=== PATIENT | female | born 1990 | race African-American/Black ===

== ENCOUNTER 2017-02-01 07:10 | Emergency (ER) | payer BC ==
[~2017-02-01] VITALS: Ht 162.6 cm; Wt 54.0 kg
[~2017-02-01 07:10] MED LIST: OMEP20CA9 PO; ONDA4TAB35 PO
[2017-02-01 07:12] VITALS: Ht 162.6 cm; Wt 54.0 kg
[2017-02-01] MEDS ORDERED: LIDOCAINE/MYLANTA 40 ML BTL PO STA (07:39)
[2017-02-01] MEDS ORDERED: FAMOTIDINE 20 MG TAB PO STA (07:39)
--- NOTE | 2017-02-01 08:12 | RADRPT ---
PROCEDURE: XR Chest. CLINICAL INDICATION: chest pain TECHNIQUE: Single frontal view of the chest was obtained COMPARISON: None FINDINGS: The heart and mediastinum are within normal limits. The lungs are clear. There is no pleural effusion or pneumothorax. RPTAT: AA IMPRESSION: No acute disease. .Juan Brasher MD, Date Time Electronically viewed and signed by .Juan Brasher MD, on 02/01/2017 08:12 .S/
[2017-02-01 08:31] LABS: BASOPHILS % 0.2 % (0.0-2.0); EOSINOPHILS % 0.5 % (0.0-7.0); HEMATOCRIT 39.6 % (37.0-47.0); HEMOGLOBIN 13.3 g/dl (12.0-16.0); LYMPHOCYTES # 1.8 10^3/ul (0.8-2.9); LYMPHOCYTES % 31.8 % (15.0-51.0); MEAN CORPUSCULAR HEMOGLOBIN 30.3 pg (29.0-33.0); MEAN CORPUSCULAR HGB CONC 33.6 g/dl (32.0-37.0); MEAN CORPUSCULAR VOLUME 90.2 fl (82.0-101.0); MEAN PLATELET VOLUME 10.5 fl (7.4-10.4); MONOCYTE # 0.3 10^3/ul (0.3-0.9); NEUTROPHIL # 3.5 10^3/ul (1.6-7.5); NEUTROPHILS % 61.3 % (39.0-77.0); PLATELET COUNT 219 10^3/UL (140-415); RED BLOOD COUNT 4.39 10^6/ul (4.20-5.40); RED CELL DISTRIBUTION WIDTH 13.7 % (11.5-14.5); WHITE BLOOD COUNT 5.7 10^3/ul (4.8-10.8)
[2017-02-01 08:45] LABS: INR 0.98
[2017-02-01 08:46] LABS: PARTIAL THROMBOPLASTIN TIME 35.4 Sec (25.0-35.0)
[2017-02-01 08:48] LABS: ANION GAP 20 (8-16); BLOOD UREA NITROGEN 7 mg/dl (7-20); CALCIUM 9.1 mg/dl (8.4-10.2); CARBON DIOXIDE 24 mmol/L (21-31); CHLORIDE 105 mmol/L (97-110); CREATININE 0.78 mg/dl (0.44-1.00); GLUCOSE 95 mg/dl (70-220); SODIUM 145 mmol/L (135-144)
[2017-02-01 09:00] LABS: TROPONIN-I < 0.012 ng/ml (0.00-0.12)
[2017-02-01] MEDS ORDERED: IBUP400T22 PO (09:05)
--- NOTE | 2017-02-01 09:30 | ERD ---
ER Documentation Chief Complaint Date/Time DATE: 02/01/17 TIME: 09:21 Chief Complaint sharp chest pain yesterday, has been going on off/on x 2 weeks HPI This is a 26-year-old female, with past medical history of GERD, presenting to the emergency department with chest wall pain since yesterday. Patient states she has had this on and off for the past 2 weeks. Patient states pain has gotten worse today. Rating pain 6/10 to upper left and mid chest and describes pain as sharp. Patient denies any radiating pain. No chest pressure or difficulty breathing. No shortness of breath. Patient states at times she has difficulty taking deep breaths due to pain. No jaw pain or hoarse voice. No painful or difficulty swallowing. No sore throat. No heartburn or hematemesis. Denies dizziness or syncope. No cough or hemoptysis Patient works as a certified nurse academic affairs assistant and states she has been working 5- 6 days in a row at times and is frequently lifting heavy patients. Patient states this is a new job and she has worked for about 1 month. ROS All systems reviewed and are negative except as per history of present illness. Medications Home Meds Active Scripts Ibuprofen* (Motrin*) 400 Mg Tab, 400 MG PO Q6, #15 TAB Prov:GERHARD HERR NP 02/01/17 Ondansetron Hcl* (Zofran* ODT) 4 mg -ODT Tab.disper, 4 MG PO Q6 Y for NAUSEA AND /OR VOMITING, #10 TAB Prov:FATOUMATA WILLIAMSON MD 02/14/16 Omeprazole* (Prilosec*) 20 Mg Capsule.dr, 20 MG PO DAILY for 14 Days, CAP Prov:FATOUMATA WILLIAMSON MD 02/14/16 Allergies Allergies: Coded Allergies: Penicillins (Verified Allergy, Mild, 02/01/17) PMhx/Soc Medical and Surgical Hx: pt denies Medical Hx, pt denies Surgical Hx History of Surgery: No Anesthesia Reaction: No Hx Neurological Disorder: No Hx Respiratory Disorders: No Hx Cardiac Disorders: No Hx Psychiatric Problems: No Hx Miscellaneous Medical Probl: No Hx Alcohol Use: Yes (socially) Hx Substance Use: No Hx Tobacco Use: No Smoking Status: Never smoker Physical Exam Vitals Vital Signs Date Time Temp Pulse Resp B/P Pulse Ox O2 Delivery O2 Flow Rate FiO2 02/01/17 07:12 97.9 75 18 112/66 99 Physical Exam Const: No acute distress, alert Head: Atraumatic Eyes: Normal Conjunctiva ENT: Normal External Ears, Nose and Mouth. Neck: Full range of motion..~ No meningismus. Resp: Clear to auscultation bilaterally. No wheezing, rhonchi or crackles. No stridor or labored breathing. No accessory muscle use. Patient has pain with palpation. Cardio: Regular rate and rhythm, no murmurs Abd: Soft, non tender, non distended. Normal bowel sounds Skin: No petechiae or rashes Back: No midline or flank tenderness Ext: No cyanosis, or edema Neur: Awake and alert Psych: Normal Mood and Affect Result Diagram: 02/01/1715 02/01/17 0815 Results 24 hrs Laboratory Tests Test 02/01/17 08:15 White Blood Count 5.710^3/ul Red Blood Count 4.3910^6/ul Hemoglobin 13.3g/dl Hematocrit 39.6% Mean Corpuscular Volume 90.2fl Mean Corpuscular Hemoglobin 30.3pg Mean Corpuscular Hemoglobin Concent 33.6g/dl Red Cell Distribution Width 13.7% Platelet Count 80350^3/UL Mean Platelet Volume 10.5fl Neutrophils % 61.3% Lymphocytes % 31.8% Monocytes % 6.0% Eosinophils % 0.5% Basophils % 0.2% Nucleated Red Blood Cells % 0.0/100WBC Neutrophils # 3.510^3/ul Lymphocytes # 1.810^3/ul Monocytes # 0.310^3/ul Eosinophils # 0.010^3/ul Basophils # 0.010^3/ul Nucleated Red Blood Cells # 0.010^3/ul Prothrombin Time 13.0Sec Prothrombin Time Ratio 1.0 INR International Normalized Ratio 0.98 Activated Partial Thromboplast Time 35.4Sec Sodium Level 145mmol/L Potassium Level 4.0mmol/L Chloride Level 105mmol/L Carbon Dioxide Level 24mmol/L Anion Gap 20 Blood Urea Nitrogen 7mg/dl Creatinine 0.78mg/dl Glucose Level 95mg/dl Calcium Level 9.1mg/dl Troponin I < 0.012ng/ml Current Medications Medications (Trade) Dose Ordered Sig/Kavon Route PRN Reason Start Time Stop Time Status Last Admin Dose Admin Famotidine (Pepcid) 20 mg ONCE STAT PO 02/01/17 07:39 02/01/17 07:41 DC 02/01/17 07:49 Miscellaneous Medication (Gi Cocktail (2)) 40 ml ONCE STAT PO 02/01/17 07:39 02/01/17 07:41 DC 02/01/17 07:49 Procedures/MDM MDM: This is a 26-year-old female presenting to emergency department with sharp chest wall pain since yesterday. Patient states this has been an ongoing problem for the past 2 weeks however pain became worse yesterday. Patient now rating pain 6/10 to upper left and mid chest. No shortness of breath or difficulty breathing. No signs or symptoms of respiratory distress. Vital signs are stable. Oxygen saturation 99% on room air. Chest x-ray reviewed by radiologist as unremarkable. Labs show no significant anemia or infection. No significant electrolyte imbalance. Troponin is negative. EKG shows normal sinus rhythm with sinus arrhythmia with heart rate 83 bpm. Well score is low and therefore no indication for d-dimer testing. Patient given Pepcid 20 mg p.o. and GI cocktail. Upon reassessment, patient states pain is tolerable. Vital signs remained stable. Differential diagnosis includes but not limited to pneumonia, bronchitis, pleurisy, costochondritis, gastroesophageal reflux,musculoskeletal chest pain and esophageal spasm. Low suspicion for acute coronary syndrome, pulmonary embolism, pneumothorax, aortic dissection and myocardial infarction. Patient is appropriate for outpatient management and will be discharged as stable. Patient will be given prescription for ibuprofen 400 mg. Instructed patient to follow up with primary care provider in the next 24-48 hours. Return to ED for worsening pain, abdominal pain, vomiting, diarrhea, high fever or any new or worsening symptoms. Patient verbalizes understanding. All questions answered at discharge. Departure Diagnosis: Primary Impression: Chest wall pain Condition: Stable Patient Instructions: Chest Wall Pain, Costochondritis Referrals: COMM[facility]ITY [facility] YOU HAVE RECEIVED A MEDICAL SCREENING EXAM AND THE RESULTS INDICATE THAT YOU DO NOT HAVE A CONDITION THAT REQUIRES URGENT TREATMENT IN THE EMERGENCY DEPARTMENT. FURTHER EVALUATION AND TREATMENT OF YOUR CONDITION CAN WAIT UNTIL YOU ARE SEEN IN YOUR DOCTORS OFFICE WITHIN THE NEXT 1-2 DAYS. IT IS YOUR RESPONSIBILITY TO MAKE AN APPOINTMENT FOR FOLOW-UP CARE. IF YOU HAVE A PRIMARY DOCTOR --you should call your primary doctor and schedule an appointment IF YOU DO NOT HAVE A PRIMARY DOCTOR YOU CAN CALL OUR PHYSICIAN REFERRAL HOTLINE AT IF YOU CAN NOT AFFORD TO SEE A PHYSICIAN YOU CAN CHOSE FROM THE FOLLOWING [facility] [address] [facility] [address] [facility] [address] [facility] [address] [facility] [address] [facility]. [facility] [address] [facility] [facility] YOU HAVE RECEIVED A MEDICAL SCREENING EXAM AND THE RESULTS INDICATE THAT YOU DO NOT HAVE A CONDITION THAT REQUIRES URGENT TREATMENT IN THE EMERGENCY DEPARTMENT. FURTHER EVALUATION AND TREATMENT OF YOUR CONDITION CAN WAIT UNTIL YOU ARE SEEN IN YOUR DOCTORS OFFICE WITHIN THE NEXT 1-2 DAYS. IT IS YOUR RESPONSIBILITY TO MAKE AN APPOINTMENT FOR FOLOW-UP CARE. IF YOU HAVE A PRIMARY DOCTOR --you should call your primary doctor and schedule and appointment IF YOU DO NOT HAVE A PRIMARY DOCTOR YOU CAN CALL OUR PHYSICIAN REFERRAL HOTLINE AT . IF YOU CAN NOT AFFORD TO SEE A PHYSICIAN YOU CAN CHOSE FROM THE FOLLOWING [facility]: [facility] [address] [place] [address] [facility] [address] [place] [address] [facility] [address] [place] [address] Additional Instructions: Call your primary care doctor TOMORROW for an appointment during the next 2-3 days.See the doctor sooner or return here if your condition worsens before your appointment time. Return to ED for any high fever, chest pain, difficulty breathing, shortness breath, wheezing, vomiting, diarrhea, abdominal pain or any new or worsening symptoms. GERHARD HERR NP Feb 01, 2017 09:30
== END 2017-02-01 09:15 | disposition home or self-care (01) ==
LOC: FTE 07:10
DX: R07.89 Other chest pain (principal)
CPT/HCPCS: 36415; 71010; 80048; 84484; 85025; 85610; 85730; 93005; Z7502; Z7610